=== PATIENT | male | born 1990 | race Caucasian/White ===

== ENCOUNTER 2016-11-13 09:33 | Inpatient (IN) | payer OTHER ==
[~2016-11-13] VITALS: Ht 190.5 cm; Wt 131.5 kg
[2016-11-13 18:41] LABS: *AMPHETAMINE, URINE NEGATIVE (NEGATIVE); *BARBITURATE, URINE NEGATIVE (NEGATIVE); *CANNABINOID, URINE NEGATIVE (NEGATIVE); *COCCAINE, URINE NEGATIVE (NEGATIVE); *OPIATE, URINE NEGATIVE (NEGATIVE); *PHENCYCLIDINE SCREEN,URINE NEGATIVE (NEGATIVE)
--- NOTE | 2016-11-13 19:35 | NUR ---
Admission note Pt is a 25 yo male, A+Ox4, presenting to [facility] for Opiate/Cocaine dependence. Pt has NKA, is Full code status, and on Regular diet. Pt is 6'3" in height and 290 LBS in weight. Pt has medical HX of anxiety, Depression, HTN, Insomnia, and Chronic back pain. Pt has no family HX to report. Pt has Primary care provider named Myla Ochoa. Pt has been using Heroin IV for 8 years, has reached a rate of 1gm/daily, and last dose was 1gm on 11-13-16 @0300. Pt has been using Cocaine for 9 years, Cocaine IV for 1.5 years, has reached a rate of 0.25gm-0.5gm/daily, and last dose was 0.5gm on 11-12-16. Pt states that he has been taking the following home medications: Gabapentin, Wellbutrin, Cymbalta, Baclofen, Clonidine, Vistaril, and Remeron, all were last taken on or about 11-07-16. Pt has HX of previous Detox/Rehab for 60 days from 07/2016 to 10/2016 at [facility] in [place], [place]. This was the Pt's last time sober. Pt has been a cigarette smoker for 12 years and has reached a rate of 5-10/daily. Pt is stable at this time with no s/s of distress noted. Respirations even and unlabored. Will continue to monitor.
[2016-11-13 20:14] VITALS: BP 143/91
[2016-11-13] MEDS ORDERED: MAG HYDROX/AL HYDROX/SIMETH 30 ML LIQUID UDC PO PRN (20:30)
[2016-11-13] MEDS ORDERED: ACETAMINOPHEN 325 MG TABLET PO PRN (20:30)
[2016-11-13] MEDS ORDERED: MIRALAX 17 GM POWD.PACK PO PRN (20:30)
[2016-11-13] MEDS ORDERED: LOPERAMIDE HCL 2 MG CAPSULE PO PRN ×2 (20:30)
[2016-11-13] MEDS ORDERED: ONDANSETRON ODT 4 MG TAB.RAPDIS SL PRN (20:30)
[2016-11-13] MEDS ORDERED: ONDANSETRON 4 MG/2 ML VIAL IM PRN (20:30)
[2016-11-13] MEDS ORDERED: CLONIDINE HCL 0.1 MG TABLET PO PRN (20:30)
[2016-11-13] MEDS ORDERED: MAGNESIUM HYDROXIDE 30 ML LIQUID UDC PO PRN (20:30)
[2016-11-13] MEDS ORDERED: IBUPROFEN 600 MG TABLET PO PRN (20:30)
[2016-11-13] MEDS ORDERED: METHOCARBAMOL 750 MG TABLET PO PRN (20:30)
[2016-11-13] MEDS ORDERED: DICYCLOMINE HCL 20 MG TABLET PO PRN (20:30)
[2016-11-13] MEDS ORDERED: BUPRENORPHINE HCL 2 MG TAB.SUBL SL PRN (20:30)
[2016-11-13] MEDS ORDERED: HYDROXYZINE PAMOATE 25 MG CAPSULE PO PRN (20:30)
[2016-11-13] MEDS ORDERED: BUPRENORPHINE HCL 2 MG TAB.SUBL SL SCH (21:00)
[2016-11-13 21:28] LABS: BASOPHILS # (AUTO) 0.1 K/uL (0.0-0.2); BASOPHILS % (AUTO) 0.7 % (0.0-2.0); EOSINOPHILS # (AUTO) 0.2 K/uL (0.0-0.7); EOSINOPHILS % (AUTO) 1.7 % (0.0-7.0); HEMATOCRIT 47.2 % (40.0-50.0); HEMOGLOBIN 16.4 g/dL (14.0-18.0); LYMPHOCYTES # (AUTO) 2.7 K/uL (0.8-4.8); LYMPHOCYTES % (AUTO) 23.7 % (20.5-51.5); MEAN CORPUSCULAR HEMOGLOBIN 30.7 uug (27.0-31.0); MEAN CORPUSCULAR HGB CONC 35 g/dL (32.0-37.0); MEAN CORPUSCULAR VOLUME 88.2 fL (82.0-92.0); MONOCYTES # (AUTO) 1.1 K/uL (0.1-1.30); MONOCYTES % (AUTO) 9.7 % (0.0-11.0); NEUTROPHILS # (AUTO) 7.3 K/uL (1.8-8.9); NEUTROPHILS % (AUTO) 64.2 % (38.5-71.5); PLATELET COUNT (AUTO) 270 K/uL (150-450); RED BLOOD CELL COUNT(AUTO) 5.35 MIL/uL (4.70-6.10); RED CELL DISTRIBUTION WIDTH 12.5 % (11.5-14.5); WHITE BLOOD COUNT (AUTO) 11.4 K/uL (4.0-11.2)
[2016-11-13 21:44] LABS: ALANINE AMINOTRANSFERASE 37 U/L (16-63); ALKALINE PHOSPHATASE 67 U/L (50-136); ASPARTATE AMINOTRANSFERASE 17 U/L (15-37); BILIRUBIN,TOTAL 0.8 mg/dL (0.2-1.0); CALCIUM 9.1 mg/dL (8.5-10.1); CARBON DIOXIDE 27 mmol/L (21-32); CHLORIDE 104 mmol/L (98-107); CREATININE 1.2 mg/dL (0.6-1.3); GFR 74 mL/min (>60); GLUCOSE 95 mg/dL (74-106); MAGNESIUM 2.2 mg/dL (1.8-2.4); POTASSIUM 4.1 mmol/L (3.5-5.1); SODIUM SERUM 140 mmol/L (136-145); TOTAL PROTEIN, SERUM 7.1 g/dL (6.4-8.2); UREA NITROGEN, BLOOD 16 mg/dL (7-18)
[2016-11-13 21:58] LABS: ETHANOL < 3 MG/DL (0-0)
[2016-11-13 22:09] LABS: HIV-1 p24 ANTIGEN NON REACTIVE (NONREACTIVE); HIV-1/2 ANTIBODY NON REACTIVE (NONREACTIVE)
[2016-11-13 22:15] LABS: THYROID STIMULATING HORMONE 0.354 mIU/mL (0.358-3.740)
[2016-11-14 00:11] VITALS: BP 112/76
[2016-11-14] MEDS ORDERED: GABA800T PO (03:52)
[2016-11-14] MEDS ORDERED: CLON0.1T PO (03:52)
[2016-11-14] MEDS ORDERED: BACL10TA PO (03:52)
[2016-11-14] MEDS ORDERED: MIRT45TA PO (03:52)
[2016-11-14] MEDS ORDERED: DULO60CA45 PO (03:52)
[2016-11-14] MEDS ORDERED: HYDR50CA PO (03:52)
[2016-11-14] MEDS ORDERED: BUPR300T52 PO (03:52)
[2016-11-14 04:31] VITALS: BP 123/78
--- NOTE | 2016-11-14 07:00 | NUR ---
Start of Shift Endorsement received from nightshift nurse. Pt is a 25 y/o male admitted for Heroin and Cocaine dependence. Pt has been placed on a 5 day Subutex taper expected to start on 11/14/16. Pt did not receive any PRN medications. Pt slept 10 hours. Pt is tolerating the detox well AEB COWS 3 at 0400. VS WNL, Full Code. Remains compliant with medication and diet regimen. All needs have been met, All safety measures in place per hospital policy. Bed in lowest position, side rails up x2, call-light within reach. Will continue to monitor
--- NOTE | 2016-11-14 07:05 | NUR ---
End of shift note Pt is a 25 yo male, A+Ox4, presenting to [facility] for Opiate/Cocaine dependence. Pt has NKA, is Full code status, and on Regular diet. Pt is 6'3" in height and 290 LBS in weight. Pt has medical HX of anxiety, Depression, HTN, Insomnia, and Chronic back pain. Pt has no family HX to report. Pt has Primary care provider named Myla Ochoa. Pt has been using Heroin IV for 8 years, has reached a rate of 1gm/daily, and last dose was 1gm on 11-13-16 @0300. Pt has been using Cocaine for 9 years, Cocaine IV for 1.5 years, has reached a rate of 0.25gm-0.5gm/daily, and last dose was 0.5gm on 11-12-16. Pt states that he has been taking the following home medications: Gabapentin, Wellbutrin, Cymbalta, Baclofen, Clonidine, Vistaril, and Remeron, all were last taken on or about 11-07-16. Pt has HX of previous Detox/Rehab for 60 days from 07/2016 to 10/2016 at [facility] in [place], [place]. This was the Pt's last time sober. Pt slept for a total of 10 HRS. Last COWS: 3 @0400. No s/s of distress noted at this time. Respirations even and unlabored. Will endorse to day shift nurse.
[2016-11-14 08:00] VITALS: BP 132/79
[2016-11-14] MEDS ORDERED: TUBERCULIN,PURIF.PROT.DERIV. 5 TU/0.1 ML TEST ID ONE (09:00)
[2016-11-14] MEDS: MULTIVITAMINS,THERAPEUTIC TABLET PO SCH (09:43)
[2016-11-14] MEDS: BUPRENORPHINE HCL 2 MG TAB.SUBL SL SCH ×4 (09:43→20:43)
[2016-11-14] MEDS: DULOXETINE 60 MG CAPSULE.DR PO SCH (09:44)
[2016-11-14 12:00] VITALS: BP 128/75
--- NOTE | 2016-11-14 13:21 | NUR ---
PRN Medications Administered PRN Bentyl and Zofran for nausea and cramping reported by the pt. Will re-assess.
--- NOTE | 2016-11-14 14:10 | NUR ---
Medication Re-assessment Pt reports nausea has ceased and his stomach cramps have ceased. Medications are effective.
[2016-11-14 16:00] VITALS: BP 138/81
--- NOTE | 2016-11-14 19:16 | NUR ---
End of Shift Endorsement given to nightshift nurse. Pt is a 25 y/o male admitted for Heroin and Cocaine dependence. Pt has been placed on a 5 day Subutex taper. Taper has been initiated at 0900. First dose of Subutex was administered for COWS of 12. Pt is moderately withdrawing at this time AEB COWS 8 at 1600. Pt received PRN Bentyl and Zofran for reported nausea and stomach cramps, medications were effective per pt reporting that nausea and cramps have ceased. Pt has participated in activities and groups. Pt is cooperative, educated him on s/e of medications and deep breathing techniques to relieve mild to moderate anxiety. Intake: 1180ml, Void x2, BM x1. VS WNL, Full Code. Remains compliant with medication and diet regimen. All needs have been met, All safety measures in place per hospital policy. Bed in lowest position, side rails up x2, call-light within reach. Will continue to monitor
--- NOTE | 2016-11-14 19:17 | NUR ---
Start of shift note Received report from day shift nurse. Pt is a 25 yo male, A+Ox4, presenting to [facility] for Opiate/Cocaine dependence. Pt has NKA, is Full Code status, and on Regular diet. Pt is on Fall precautions. Pt has HX of Anxiety, Depression, Chronic back pain, HTN, and Insomnia. Pt is on 5 day Subutex taper, tolerated well. No s/s of distress noted at this time. Respirations even and unlabored. Will continue to monitor.
[2016-11-14 20:32] VITALS: BP 148/97
[2016-11-15 00:30] VITALS: BP 124/78
[2016-11-15 04:16] VITALS: BP 116/74
--- NOTE | 2016-11-15 06:59 | NUR ---
End of shift note Pt is a 25 yo male, A+Ox4, presenting to [facility] [place] for Opiate/Cocaine dependence. Pt has NKA, is Full Code status, and on Regular diet. Pt is on Fall precautions. Pt has HX of Anxiety, Depression, Chronic back pain, HTN, and Insomnia. Pt is on 5 day Subutex taper, tolerated well. Pt slept for a total of 5HRS. Last COWS: 3 @0400. No s/s of distress noted at this time. Respirations even and unlabored. Will endorse to day shift nurse.
--- NOTE | 2016-11-15 07:52 | NUR ---
Start of shift note; Received report from night nurse. Patient is AOX4. Patient is a 25 y/o male admitted on 11/13/16 for Heroin /Cocaine dependence. Patient was placed on a 5 day Subutex taper, no adverse reactions noted. Patient's last COWS score is 3 at 0400. Patient slept for 5 hours. Skin is intact. Patient reported history of Anxiety, depression, insomnia, HTN and chronic back pain. All safety measures secured. Educated patient regarding the treatment plan and encouraged patient to consume adequate fluid intake, verbalized understanding. Will closely monitor patient.
[2016-11-15 07:53] LABS: BASOPHILS # (AUTO) 0.1 K/uL (0.0-0.2); BASOPHILS % (AUTO) 0.9 % (0.0-2.0); EOSINOPHILS # (AUTO) 0.4 K/uL (0.0-0.7); EOSINOPHILS % (AUTO) 3.9 % (0.0-7.0); HEMATOCRIT 48.8 % (40.0-50.0); HEMOGLOBIN 17.1 g/dL (14.0-18.0); LYMPHOCYTES # (AUTO) 2.2 K/uL (0.8-4.8); MEAN CORPUSCULAR HEMOGLOBIN 30.8 uug (27.0-31.0); MEAN CORPUSCULAR HGB CONC 35 g/dL (32.0-37.0); MEAN CORPUSCULAR VOLUME 87.9 fL (82.0-92.0); MONOCYTES # (AUTO) 0.8 K/uL (0.1-1.30); NEUTROPHILS # (AUTO) 5.5 K/uL (1.8-8.9); NEUTROPHILS % (AUTO) 62.2 % (38.5-71.5); PLATELET COUNT (AUTO) 257 K/uL (150-450); RED BLOOD CELL COUNT(AUTO) 5.55 MIL/uL (4.70-6.10); RED CELL DISTRIBUTION WIDTH 12.1 % (11.5-14.5)
[2016-11-15 08:00] VITALS: BP 130/87
[2016-11-15 08:32] LABS: CALCIUM 8.8 mg/dL (8.5-10.1); CREATININE 1.2 mg/dL (0.6-1.3); MAGNESIUM 2.1 mg/dL (1.8-2.4); PHOSPHOROUS 4.2 mg/dL (2.5-4.9); POTASSIUM 4.2 mmol/L (3.5-5.1)
[2016-11-15] MEDS: MULTIVITAMINS,THERAPEUTIC TABLET PO SCH (08:39)
[2016-11-15] MEDS: BUPRENORPHINE HCL 2 MG TAB.SUBL SL SCH ×3 (08:39→20:37)
[2016-11-15] MEDS: DULOXETINE 60 MG CAPSULE.DR PO SCH (08:39)
[2016-11-15 09:20] LABS: THYROID STIMULATING HORMONE 0.939 mIU/mL (0.358-3.740)
[2016-11-15 12:00] VITALS: BP 127/79
[2016-11-15 12:08] LABS: HCV AB <0.1 s/co ratio (0.0-0.9); HEPATITIS B CORE AB, IgM Negative (Negative); HEPATITIS B SURFACE AG Negative (Negative)
[2016-11-15] MEDS: CLONIDINE HCL 0.1 MG TABLET PO SCH ×2 (14:24→20:36)
[2016-11-15] MEDS ORDERED: GABAPENTIN 300 MG CAPSULE PO ONE (15:00)
[2016-11-15] MEDS ORDERED: GABAPENTIN 300 MG CAPSULE PO SCH ×2 (15:00)
[2016-11-15 15:59] LABS: FREE T4 (FREE THYROXINE) 1.35 ng/dL (0.76-1.46)
[2016-11-15 16:00] VITALS: BP 130/84
[2016-11-15] MEDS: BACLOFEN 10 MG TABLET PO SCH (16:41)
--- NOTE | 2016-11-15 18:14 | NUR ---
End of shift note; Patient is AOX4. Patient is a 25 y/o male admitted on 11/13/16 for Heroin /Cocaine dependence. Patient was placed on a 5 day Subutex taper, no adverse reactions noted. Patient's last COWS score is 4 at 1600. Skin is intact. Patient reported history of Anxiety, depression, insomnia, HTN and chronic back pain. All safety measures secured. Patient remained compliant with treatment plan. Medications were effective in reducing withdrawal symptoms. Met all needs.
--- NOTE | 2016-11-15 19:30 | NUR ---
START OF SHIFT NOTE : Patient is a 25 y/o male admitted on 11/13/16 for Heroin /Cocaine dependence. Patient was placed on a 5 day Subutex taper on 11/14/2016, no adverse reactions noted. Patient's last COWS score is 4 at 1600. Skin is intact. Pt. visits meeting and activities, is compliant with Tx plan. All safety measures secured. Patient remained compliant with treatment plan. Medications were effective in reducing withdrawal symptoms.Safety measures in place : bed on lowest position with side rails x2 up for safety, call light within reach. Will continue to monitor closely and offer help.
[2016-11-15 20:00] VITALS: BP 147/96
[2016-11-15] MEDS: GABAPENTIN 300 MG CAPSULE PO SCH (20:36)
--- NOTE | 2016-11-16 | NUR ---
PRN BENADRYL Pt. complains of sleeplessness, PRN BENADRYL given as ordered. Safety measures in place : bed on lowest position with side rails x2 up for safety, call light within reach. Will continue to monitor closely and offer help.
[2016-11-16] MEDS: diphenhydrAMINE 50 MG CAPSULE PO PRN ×2 (00:39→21:10)
--- NOTE | 2016-11-16 00:55 | NUR ---
REASSESSMENT ESPINOZA Pt. is sleeping, RR=16, breathing even and unlabored. Safety measures in place : bed on lowest position with side rails x2 up for safety, call light within reach. Will continue to monitor closely and offer help
[2016-11-16 04:00] VITALS: BP 120/68
--- NOTE | 2016-11-16 06:46 | NUR ---
END OF SHIFT NOTE : Patient is a 25 y/o male admitted on 11/13/16 for Heroin /Cocaine dependence. Patient was placed on a 5 day Subutex taper on 11/14/2016, no adverse reactions noted. Skin is intact. Pt. visits meeting and activities, is compliant with Tx plan. PRN BENADRYL was given during my shift. V/S remain WNL. RR=16, even and unlabored, lungs clear upon auscultation, abdomen soft and non- distended. Pt denies nausea, vomiting and diarrhea. LAST COWS=2 at 0400 , SWOQJX=5084 ml, voided x 2, slept 6 hours. Safety measures in place : bed on lowest position with side rails x2 up for safety, call light within reach. Will continue to monitor closely and offer help.
[2016-11-16 08:00] VITALS: BP 139/70
--- NOTE | 2016-11-16 08:00 | NUR ---
START OF SHIFT Pt 25 y/o male admitted for opiod and cocaine dependence. Pt received in room awake in bed watching television. Pt alert and oriented to name, place, and time. Perrla. skin warm and slightly moist to touch. Respirations even and unlabored. Bilateral hand tremors noted slightly. It was reported that pt slept for 6 hours last night. Bed on lowest position with side rails x2 up for safety. Call light within reach. No distress noted at this time.
[2016-11-16 08:06] LABS: VIT D, 25-HYDROXY 25.9 ng/mL (30.0-100.0)
[2016-11-16] MEDS: MULTIVITAMINS,THERAPEUTIC TABLET PO SCH (08:16)
--- NOTE | 2016-11-16 08:16 | NUR ---
PRN Pt stated has headache 5/10. Tylenol po prn per MD order given and tolerated well.
[2016-11-16] MEDS: BACLOFEN 10 MG TABLET PO SCH ×4 (08:17→21:11)
[2016-11-16] MEDS: GABAPENTIN 300 MG CAPSULE PO SCH ×3 (08:17→21:12)
[2016-11-16] MEDS: DULOXETINE 60 MG CAPSULE.DR PO SCH (08:17)
[2016-11-16] MEDS: CLONIDINE HCL 0.1 MG TABLET PO SCH ×3 (08:17→21:12)
[2016-11-16] MEDS ORDERED: BUPRENORPHINE HCL 2 MG TAB.SUBL SL SCH (09:00)
--- NOTE | 2016-11-16 09:16 | NUR ---
PRN EVAL Pt states pain level 1/10.
[2016-11-16 12:00] VITALS: BP 132/82
[2016-11-16] MEDS ORDERED: BUPRENORPHINE HCL 2 MG TAB.SUBL SL ONE (12:45)
--- NOTE | 2016-11-16 12:53 | NUR ---
PRN Pt with cows=9. Pt was seen by Dr. Govea with new order for subutex po 4 mg x1 dose now, noted and carried out.
--- NOTE | 2016-11-16 13:53 | NUR ---
PRN EVAL Pt with cows=6. Pt observed laying on bed. No distress noted at this time.
[2016-11-16] MEDS: BUPRENORPHINE HCL 2 MG TAB.SUBL SL SCH ×2 (15:34→21:12)
[2016-11-16 16:00] VITALS: BP 110/80
--- NOTE | 2016-11-16 18:50 | NUR ---
END OF SHIFT Pt 25 y/o male admitted for opioid and cocaine dependence. Pt alert and oriented to name, place, and time. PErrla. Skin warm and slightly moist to touch. Respirations even and unlabored. Bilateral hand tremors noted. Pt observed mostly in group activity throughout the day. Pt with episodes chills and sweats throughout the morning. Pt also with episodes of anxiety, pressured speech and fidgety while in bed. Pt medication compliant and tolerated well. No ASE noted. Bed on lowest position with side rails x2 up for safety. Call light within reach.
--- NOTE | 2016-11-16 19:30 | NUR ---
START OF SHIFT NOTE : Patient is a 25 y/o male admitted on 11/13/16 for Heroin /Cocaine dependence. Patient was placed on a 5 day Subutex taper on 11/14/2016, no adverse reactions noted. COWS=2. Skin is intact. Pt. visits meeting and activities, is compliant with Tx plan. All safety measures secured. Patient remained compliant with treatment plan. Medications were effective in reducing withdrawal symptoms. Safety measures in place : bed on lowest position with side rails x2 up for safety, call light within reach. Will continue to monitor closely and offer help.
[2016-11-16 20:00] VITALS: BP 125/75
--- NOTE | 2016-11-17 06:55 | NUR ---
END OF SHIFT NOTE : Patient is a 25 y/o male admitted on 11/13/16 for Heroin /Cocaine dependence. Patient was placed on a 5 day Subutex taper on 11/14/2016, no adverse reactions noted. Skin is intact. Pt. visits meeting and activities, is compliant with Tx plan. PRN BENADRYL was given during my shift, but pt. remains awake all night long, slept in the morniong hours only. V/S remain WNL. RR=16, even and unlabored, lungs clear upon auscultation, abdomen soft and non- distended. Pt denies nausea, vomiting and diarrhea. LAST COWS=1 at 0400 , OBQIHR=9540 ml, voided x 3, slept 2 hours. Safety measures in place : bed on lowest position with side rails x2 up for safety, call light within reach. Will continue to monitor closely and offer help.
--- NOTE | 2016-11-17 07:16 | NUR ---
Start Of Shift Received report from assembler 1st shift nurse. Patient is a 25 y/o male admitted on 11/13/16 for Heroin /Cocaine dependence. Pt is full code regular diet, on fall precautions denies any food or drug allergies. Patient was placed on a 5 day Subutex taper on 11/14/2016, tolerating well. Skin is intact. Pt received PRN Benadryl last night which was not effective per assembler 1st shift nurse. Treatment plan tolerated well by the patient as evidenced by ptst last COWS score of 1 which was taken at 0400. Pt slept a total of 2 hours last night. Pt is currently in his room laying in bed watching TV. All safety measures in place per hospital policy. Bed in lowest position, side rails up x2, call-light within reach. Will continue to monitor and provide support.
[2016-11-17 08:00] VITALS: BP 124/75
[2016-11-17] MEDS: DULOXETINE 60 MG CAPSULE.DR PO SCH (09:49)
[2016-11-17] MEDS: BACLOFEN 10 MG TABLET PO SCH ×3 (09:49→21:24)
[2016-11-17] MEDS: CLONIDINE HCL 0.1 MG TABLET PO SCH ×3 (09:49→21:24)
[2016-11-17] MEDS: GABAPENTIN 300 MG CAPSULE PO SCH ×3 (09:49→21:24)
[2016-11-17] MEDS: MULTIVITAMINS,THERAPEUTIC TABLET PO SCH (09:50)
[2016-11-17] MEDS: BUPRENORPHINE HCL 2 MG TAB.SUBL SL SCH ×3 (09:50→21:25)
[2016-11-17] MEDS: CHOLECALCIFEROL 1,000 UNIT TABLET PO SCH (10:14)
[2016-11-17 12:00] VITALS: BP 139/85
[2016-11-17] MEDS ORDERED: IBUPROFEN 800 MG TABLET PO PRN (12:45)
[2016-11-17] MEDS: BENZOCAINE/MENTH/CETYLPYRD LOZENGE MM PRN (15:38)
--- NOTE | 2016-11-17 15:38 | NUR ---
PRN MEDICATION Pt c/o soar throat requested something for relief, contacted order for PRN Cepacol received and administered will continue to monitor
[2016-11-17 16:00] VITALS: BP 126/72
--- NOTE | 2016-11-17 16:38 | NUR ---
PRN REASSESSMENT medication effective pt reported a decrease in discomfort, all needs met will continue to monitor
--- NOTE | 2016-11-17 19:28 | NUR ---
End Of Shift Patient is a 25 y/o male admitted on 11/13/16 for Heroin /Cocaine dependence. Pt is full code regular diet, on fall precautions denies any food or drug allergies. Patient was placed on a 5 day Subutex taper on 11/14/2016, tolerating well. Skin is intact. Pt received PRN Cepacol and Motrin both medications effective. Treatment plan tolerated well by the patient as evidenced by pts last COWS score of 1 which was taken at 1600. Pt participated in some activities and groups. Pt ate all of his meals. Pt remains compliant with the treatment plan. Pts vital signs within normal limits, A/Ox4, denies chest pain. Respirations even unlabored, lungs clear upon auscultation abdomen soft and non- distended. Pt denies nausea, vomiting and diarrhea. Pt total fluid intake was 3000ml with 4 voids and 1 stool. Safety measures in place, call light within reach. All pertinent information discussed with night club manager, endorsement given to night club manager nurse.
--- NOTE | 2016-11-17 19:30 | NUR ---
START OF SHIFT-- Patient is a 25 y/o male admitted on 11/13/16 for Heroin /Cocaine dependence. Pt is full code regular diet, on fall precautions ,has no known allergies. Patient was placed on a 5 day Subutex taper on 11/14/2016, tolerating well. Skin is intact. Last COWS was 1 at 1600. Pt is compliant with medications and treatment plan. Pt's vital signs have been within normal limits, A/Ox4. Safety measures in place, call light within reach. Will continue to monitor.
[2016-11-17 20:00] VITALS: BP 149/102
[2016-11-17] MEDS: diphenhydrAMINE 50 MG CAPSULE PO PRN (23:30)
--- NOTE | 2016-11-17 23:30 | NUR ---
PRN BENADRYL GIVEN ORDERED FOR C/O INSOMNIA PER PT REQUEST.WILL MONITOR FOR EFFECTIVENESS.
[2016-11-18] VITALS: BP 134/86
--- NOTE | 2016-11-18 00:30 | NUR ---
PRN F/U--- PRN BENADRYL IS EFFECTIVE.PT IS RESTING IN BED WITH EYES CLOSED.NO S/S OF DISTRESS NOTED.
[2016-11-18 04:00] VITALS: BP 137/80
--- NOTE | 2016-11-18 06:51 | NUR ---
END OF SHIFT--- Patient is a 25 y/o male admitted on 11/13/16 for Heroin /Cocaine dependence. Pt is full code regular diet, on fall precautions ,has no known allergies. Patient was placed on a 5 day Subutex taper on 11/14/2016, tolerating well. Skin is intact. Last COWS was 0 at 0400. Pt is compliant with medications and treatment plan. Pts vital signs have been within normal limits, A/Ox4. Pt was given PRN Benadryl for insomnia with good effect.Pt slept 6 hrs;fluid intake was 1301 mls;urine x 2 .Safety measures in place, call light within reach. Will continue to monitor.
--- NOTE | 2016-11-18 07:10 | NUR ---
Start Of Shift Received report from director of conservation nurse. Patient is a 25 y/o male admitted on 11/13/16 for Heroin /Cocaine dependence. Pt is full code regular diet, on fall precautions denies any food or drug allergies. Patient was placed on a 5 day Subutex taper on 11/14/2016, tolerating well. Reports PMH of anxiety depression Insomnia, HTN and chronic back pain. Skin is intact. Pt received PRN Benadryl last night which was effective per director of conservation nurse. Treatment plan tolerated well by the patient as evidenced by Pt's last COWS score of 2 which was taken at 2000. Pt slept a total of 6 hours last night. Pt is currently in his room laying in bed watching TV. All safety measures in place per hospital policy. Bed in lowest position, side rails up x2, call-light within reach. Will continue to monitor and provide support.
[2016-11-18 08:00] VITALS: BP 139/73
[2016-11-18] MEDS ORDERED: BUPRENORPHINE HCL 2 MG TAB.SUBL SL SCH (09:00)
[2016-11-18] MEDS: CHOLECALCIFEROL 1,000 UNIT TABLET PO SCH (09:42)
[2016-11-18] MEDS: BACLOFEN 10 MG TABLET PO SCH ×3 (09:43→20:42)
[2016-11-18] MEDS: GABAPENTIN 300 MG CAPSULE PO SCH ×3 (09:43→20:43)
[2016-11-18] MEDS: MULTIVITAMINS,THERAPEUTIC TABLET PO SCH (09:44)
[2016-11-18] MEDS: DULOXETINE 60 MG CAPSULE.DR PO SCH (09:44)
[2016-11-18] MEDS: CLONIDINE HCL 0.1 MG TABLET PO SCH ×3 (09:44→20:42)
[2016-11-18] MEDS: BENZOCAINE/MENTH/CETYLPYRD LOZENGE MM PRN (10:58)
--- NOTE | 2016-11-18 10:58 | NUR ---
PRN MEDICATION Pt c/o soar throat requested something for relief, PRN Cepacol administered will continue to monitor
--- NOTE | 2016-11-18 11:58 | NUR ---
PRN REASSESSMENT medication effective pt reported a decrease in discomfort, all needs met will continue to monitor
[2016-11-18 12:00] VITALS: BP 132/75
[2016-11-18] MEDS ORDERED: NAPROXEN 500 MG TABLET PO ONE (13:15)
[2016-11-18] MEDS ORDERED: GUAIFENESIN/DEXTROMETHORPHAN 5 ML UDC PO PRN (13:15)
[2016-11-18] MEDS: LIDOCAINE 5% PATCH TD SCH (13:45)
--- NOTE | 2016-11-18 15:30 | NUR ---
SKIPPED MEDICATION Pt's 1500 scheduled medications were skipped due to pt being too sedated. MD coral will continue to monitor
[2016-11-18 16:00] VITALS: BP 134/83
[2016-11-18 18:36] LABS: *AMPHETAMINE, URINE NEGATIVE (NEGATIVE); *BARBITURATE, URINE NEGATIVE (NEGATIVE); *CANNABINOID, URINE NEGATIVE (NEGATIVE); *COCCAINE, URINE NEGATIVE (NEGATIVE); *OPIATE, URINE NEGATIVE (NEGATIVE); *PHENCYCLIDINE SCREEN,URINE NEGATIVE (NEGATIVE)
--- NOTE | 2016-11-18 19:07 | NUR ---
End Of Shift Patient is a 25 y/o male admitted on 11/13/16 for Heroin /Cocaine dependence. Patient was placed on a 5 day Subutex taper which he has completed pt will be discharged to [facility]. Skin is intact. Pt received PRN Cepacol medication effective pt also received a onetime order of naproxen 500mg, pt now has lidocaine patch for his back Q12H. Urine collected and discharge paper work completed. Treatment plan tolerated well by the patient as evidenced by pt's last COWS score of 2 which was taken at 1600. Pt participated in some activities and groups. Pt ate all of his meals. Pt remains compliant with the treatment plan. Pt's vital signs within normal limits, A/Ox4, denies chest pain. Respirations even unlabored, lungs clear upon auscultation abdomen soft and non- distended. Pt denies nausea, vomiting and diarrhea. Pt total fluid intake was 2340ml with 5 voids and 1 stool. Safety measures in place, call light within reach. All pertinent information discussed with guest relations associate, endorsement given to guest relations associate nurse.
--- NOTE | 2016-11-18 19:30 | NUR ---
START OF SHIFT-- Patient is a 25 y/o male admitted on 11/13/16 for Heroin /Cocaine dependence. Patient completed 5 day Subutex taper; well tolerated;pt will be discharged to [facility] in the morning. Skin is intact, warm and dry to touch. Last COWS score of 2 at 1600. Pt is compliant with the treatment plan. A/Ox4, NKA,full code,regular diet.All Safety measures in place. Bed in lowest position, side rails up x2, call-light within reach. Will continue to monitor.
[2016-11-18 20:00] VITALS: BP 149/78
[2016-11-18] MEDS: NAPROXEN 500 MG TABLET PO SCH (20:42)
[2016-11-18] MEDS ORDERED: Baclofen PO (21:42)
[2016-11-18] MEDS ORDERED: LIDO30AD10 TD (21:42)
[2016-11-18] MEDS ORDERED: Famotidine PO (21:42)
[2016-11-18] MEDS ORDERED: CHOL10002 PO (21:42)
[2016-11-18] MEDS ORDERED: DICY20TA28 PO (21:42)
[2016-11-18] MEDS ORDERED: Naproxen PO (21:42)
[2016-11-18] MEDS ORDERED: CLON0.1T14 PO (21:42)
[2016-11-18] MEDS ORDERED: HYDR-3895 PO (21:42)
[2016-11-18] MEDS ORDERED: Gabapentin PO (21:42)
[2016-11-18] MEDS: diphenhydrAMINE 50 MG CAPSULE PO PRN (22:50)
--- NOTE | 2016-11-18 22:50 | NUR ---
PRN BENADRYL GIVEN FOR C/O INSOMNIA PER PT REQUEST.WILL MONITOR.
--- NOTE | 2016-11-18 23:50 | NUR ---
PRN BENADRYL IS EFFECTIVE.PT RESTING IN BED WITH EYES CLOSED,NO S/S OF DISTRESS NOTED,WILL BE MONITORED FOR SAFETY.
[2016-11-19] VITALS: BP 138/72
[2016-11-19 04:00] VITALS: BP 131/78
--- NOTE | 2016-11-19 06:47 | NUR ---
END OF SHIFT-- Patient is a 25 y/o male admitted on 11/13/16 for Heroin /Cocaine dependence. Patient completed 5 day Subutex taper; pt will be discharged to [facility] this morning. Skin is intact, warm and dry to touch. Last COWS score 0 at 0400 . Pt is compliant with the treatment plan. A/Ox4, NKA,full code,regular diet.PRN Benadryl given for insomnia with good effect.Pt slept 7 hrs,fluid intake was 1060 mls;voided x 2.stool x 1 .All Safety measures in place. Bed in lowest position, side rails up x2, call-light within reach. Will continue to monitor.
[2016-11-19 08:00] VITALS: BP 132/84
--- NOTE | 2016-11-19 08:00 | NUR ---
START OF SHIFT: RECEIVED PT A/O X 4.SUBUTEX TAPER COMPLETED. HE STATES HE FEELS MILD ANXIETY ABOUT DISCHARGING THIS AM. AND STATES HE IS MOTIVATED TOWARD RECOVERY. DISCHARGE PLANNING IN PROGRESS. WILL ADMINISTER MEDS AND PROVIDE SAFE AND SUPPORTIVE ENVIRONMENT. COWS 1.
[2016-11-19] MEDS: MULTIVITAMINS,THERAPEUTIC TABLET PO SCH (08:13)
[2016-11-19] MEDS: NAPROXEN 500 MG TABLET PO SCH (08:13)
[2016-11-19] MEDS: GABAPENTIN 300 MG CAPSULE PO SCH (08:14)
[2016-11-19] MEDS: DULOXETINE 60 MG CAPSULE.DR PO SCH (08:14)
[2016-11-19] MEDS: BACLOFEN 10 MG TABLET PO SCH (08:14)
[2016-11-19] MEDS: CHOLECALCIFEROL 1,000 UNIT TABLET PO SCH (08:14)
[2016-11-19 08:15] VITALS: BP 132/84
[2016-11-19] MEDS: CLONIDINE HCL 0.1 MG TABLET PO SCH (08:15)
[2016-11-19] MEDS: LIDOCAINE 5% PATCH TD SCH (08:15)
[2016-11-19] MEDS ORDERED: FAMOTIDINE 20 MG TABLET PO SCH (09:00)
--- NOTE | 2016-11-19 11:05 | NUR ---
DISCHARGE: PT IS A/O X 4. HE DENIES S/I AND H/I. HE STATES HE IS READY TO DISCHARGE TO A LOWER LEVEL OF CARE. BELONGINGS RETURNED. VERBALLY EDUCATED PT ON DISCHARGE INSTRUCTIONS AND MEDICATIONS. PT EXPRESSED VERBAL UNDERSTANDING OF EDUCATION. VS WNL. BLEACHER OPERATOR ESCORTED PT TO [facility] WHERE HE WAS TRANSPORTED AT 10:56 TO MORNING SIDE RECOVERY BY [facility].
[2016-11-20 12:22] LABS: *HCV QUANT HCV Not Detected IU/mL (.)
== END 2016-11-19 10:56 | disposition home or self-care (01) | DRG 895 ==
LOC: SRC 16:26
PROVIDERS: ADMIT Internal Medicine; ATTEND Internal Medicine
PROC: HZ2ZZZZ Detoxification Services for Substance Abuse Treatment (ICD-10-PCS; principal; 2016-11-13)
PROC: HZ31ZZZ Individual Counseling for Substance Abuse Treatment, Behavioral (ICD-10-PCS; 2016-11-15)
PROC: HZ41ZZZ Group Counseling for Substance Abuse Treatment, Behavioral (ICD-10-PCS; 2016-11-15)
DX: F11.23 Opioid dependence with withdrawal (principal); B19.20 Unspecified viral hepatitis C without hepatic coma; F41.9 Anxiety disorder, unspecified; F17.210 Nicotine dependence, cigarettes, uncomplicated; F12.10 Cannabis abuse, uncomplicated; F14.10 Cocaine abuse, uncomplicated; F32.9 Major depressive disorder, single episode, unspecified; J00 Acute nasopharyngitis [common cold]; Z82.49 Family history of ischemic heart disease and other diseases of the circulatory system; Z81.3 Family history of other psychoactive substance abuse and dependence; E07.81 Sick-euthyroid syndrome; E55.9 Vitamin D deficiency, unspecified
CPT/HCPCS: 36415; 70030-TC; 80307; 82306; 83735; 84100; 84443; 85025; 86403; 86580; 86592; 86705; 86803; 87070; 87340; 87400; 87521; 87806; A4663; G6040-TC; Q0162; Q0163